=== PATIENT | male | born 2000 | race Caucasian/White ===

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

== ENCOUNTER → 2021-12-21 | Outpatient (CLI) | payer BC ==
--- NOTE | 2021-12-21 16:32 | US ---
EXAMINATION TYPE: US scrotum with doppler. Grayscale and color Doppler Duplex imaging performed of t jose miguel scrotum. 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 Hx appendectomy 2020. EXAM MEASUREMENTS: TESTICLES: Right Testicle: 4.5 x 3.2 x 2.2 cm Left Testicle: 4.6 x 2.7 x 2.2 cm EPIDIDYMIS HEAD: Right Epididymis: 0.6 x x 1.4 cm Anechoic area seen right epididymal head: 0.3 x 0.5 x 0.4 cm. Left Epididymis: 0.5 x 1.5 x 1.2 cm Doppler performed to assess for testicular vascularity; bilateral color flow and waveforms are seen. Presence of hydroceles: No Presence of varicoceles: Yes, prominent vessels seen lateral to left testicle. Incidental 4 mm spermatocele or benign thin-walled cyst epididymal head on the right. Satisfactory bl ood flow to both testicles. Comparison view show symmetric blood flow. Prominent vessel possible vari cocele on the left noted towards the end of study. IMPRESSION: Suspect left-sided varicocele.
== END | disposition home or self-care (01) ==
LOC: RADUSWWP 14:58
PROVIDERS: ATTEND Family Medicine
DX: I86.1 Scrotal varices (principal)
CPT/HCPCS: 76870; 93975